=== PATIENT | female | born 1970 | race Caucasian/White ===

== ENCOUNTER 2017-05-24 13:22 | Emergency (ER) | payer OTHER ==
[~2017-05-24] VITALS: Ht 162.6 cm; Wt 74.5 kg
[2017-05-24 13:26] VITALS: Ht 162.6 cm; Wt 74.5 kg
[2017-05-24] MEDS ORDERED: KETOROLAC 30 MG INJ IV STA (14:45)
[2017-05-24] MEDS ORDERED: DIPHENHYDRAMINE 50 MG INJ IV ONE (15:00)
[2017-05-24] MEDS ORDERED: METOCLOPRAMIDE 10 MG INJ IV ONE (15:00)
--- NOTE | 2017-05-24 15:11 | RADRPT ---
PROCEDURE: CT Brain without contrast. CLINICAL INDICATION: headache x 4 days, new onset TECHNIQUE: A CT of the brain was performed on a [employer] 64-slice CT scanner utilizing axial imaging from the skull base through the vertex without IV contrast. Multiplanar reformatted images were made. Images were reviewed on a PACS workstation. The CTDIvol is 44.9 mGy and the DLP is 630 mGycm. One or more of the following dose reduction techniques were used: Automated exposure control. Adjustment of the mA and/or kV according to patient size. Use of iterative reconstruction technique. COMPARISON: None FINDINGS: There is no intracranial hemorrhage, mass effect, or midline shift. No extra-axial fluid collection is seen. The ventricles and sulci are normal in size and configuration. The density of the brain is normal, and the meng white matter differentiation appears well-preserved. The visualized paranasal sinuses and osseous structures are grossly unremarkable. IMPRESSION: 1. No evidence of acute intracranial pathology. 2. The brain is normal in appearance. Physician Reyna Date Time Electronically viewed and signed by Physician Reyna on 05/24/2017 15:10 ML/
[2017-05-24] MEDS ORDERED: KETOROLAC 30 MG INJ IM STA (15:18)
[2017-05-24] MEDS ORDERED: ONDANSETRON (ODT) 4 MG TAB ODT STA (15:18)
[2017-05-24] MEDS ORDERED: IBUP400T22 PO (16:01)
[2017-05-24] MEDS ORDERED: BEN25 PO (16:01)
--- NOTE | 2017-05-24 17:19 | ERD ---
ER Documentation Chief Complaint Date/Time DATE: 05/24/17 TIME: 17:07 Chief Complaint HEADACHE X 4 DAYS HPI This is a 47 year old female presents to ER with headache x 4 days. Patient rates pain 10/10 to posterior head and describes pain as constant and throbbing. Patient states she has had pain on and off for the past 4 days. No nausea or vomiting. Patient took Tylenol about 1 hour prior to arrival with some relief of pain. No blurry vision, loss of vision, curtain coming down over eye(s), floaters or flashes of lights. No neck pain or neck stiffness. No fevers or chills. Describes this as the worst headache she has had and states she does not get headaches often. ROS All systems reviewed and are negative except as per history of present illness. Medications Home Meds Active Scripts Diphenhydramine Hcl* (Benadryl*) 25 Mg Cap, 25 MG PO Q6, #15 CAP Prov:GERALD MCFARLAND NP 05/24/17 Ibuprofen* (Motrin*) 400 Mg Tab, 400 MG PO Q6, #30 TAB Prov:GERALD MCFARLAND NP 05/24/17 Allergies Allergies: Coded Allergies: No Known Allergy (Unverified , 01/24/15) PMhx/Soc History of Surgery: No Anesthesia Reaction: No Hx Neurological Disorder: No Hx Respiratory Disorders: No Hx Cardiac Disorders: No Hx Psychiatric Problems: No Hx Miscellaneous Medical Probl: No Hx Alcohol Use: No Hx Substance Use: No Hx Tobacco Use: No Smoking Status: Former smoker Physical Exam Vitals Vital Signs Date Time Temp Pulse Resp B/P Pulse Ox O2 Delivery O2 Flow Rate FiO2 05/24/17 13:26 98.3 78 18 145/93 98 Physical Exam Const: No acute distress, alert Head: Atraumatic Eyes: Normal Conjunctiva, PERRL, EOMs intact ENT: Normal External Ears, Nose and Mouth. Neck: Full range of motion..~ No meningismus. Resp: Clear to auscultation bilaterally Cardio: Regular rate and rhythm, no murmurs Abd: Soft, non tender, non distended. Normal bowel sounds Skin: No petechiae or rashes Back: No midline or flank tenderness Ext: No cyanosis, or edema Neur: Awake and alert Psych: Normal Mood and Affect Results 24 hrs Current Medications Medications (Trade) Dose Ordered Sig/Yumiko Route PRN Reason Start Time Stop Time Status Last Admin Dose Admin Metoclopramide HCl (Reglan) 10 mg ONCE ONCE IV 05/24/17 15:00 05/24/17 15:20 DC Diphenhydramine HCl (Benadryl) 25 mg ONCE ONCE IV 05/24/17 15:00 05/24/17 15:20 DC Ketorolac Tromethamine (Toradol) 30 mg ONCE STAT IV 05/24/17 14:45 05/24/17 15:20 DC Ketorolac Tromethamine (Toradol) 30 mg ONCE STAT IM 05/24/17 15:18 05/24/17 15:20 DC 05/24/17 15:37 Ondansetron HCl (Zofran Odt) 4 mg ONCE STAT ODT 05/24/17 15:18 05/24/17 15:20 DC 05/24/17 15:35 Procedures/MDM MDM: 47 year old female presents to ER with constant, throbbing headache intermittently for the past 4 days. Patient refusing IV or IV medications. Patient given Toradol 30mg IM and zofran 4mg ODT. Patient's neuro exam is unremarkable. no weakness. No visual changes. No fevers or chills. No diplopia, loss of vision or blurry vision. No photophobia. No trauma to head or fall. No loss of consciousness. No nausea or vomiting. No confusion or altered mental status. Upon reassessment of patient, patient states pain has improved significantly. Patient denies ataxic gait, slurred speech, numbness of the face or body, weakness, clumsiness, or incoordination. Vitals are stable. Low suspicion for CVA, TIA, meningitis, subdural hematoma, intracranial hemorrhage or mass. Differential diagnosis includes but not limited to tension headache, migraine headache, cluster headache, sinus headache, sinusitis, trigeminal neuralgia, herpes zoster and postherpetic neuralgia. Patient is appropriate for outpatient management will be given prescription for Ibuprofen and Benadryl. Instructed patient to follow-up with primary care provider in the next 2-3 days for reassessment. Resources provided. Return to ED for any high fever, chest pain, difficulty breathing, shortness breath, wheezing, vomiting, diarrhea, abdominal pain or any new or worsening symptoms. Patient verbalizes understanding. All questions answered at discharge. Disclaimer: Inadvertent spelling and grammatical errors are likely due to EHR/ dictation software use and do not reflect on the overall quality of patient care. Also, please note that the electronic time recorded on this note does not necessarily reflect the actual time of the patient encounter. Departure Diagnosis: Primary Impression: Headache Headache type: unspecified Headache chronicity pattern: acute headache Intractability: not intractable Qualified Code: R51 - Acute nonintractable headache, unspecified headache type Condition: Stable Patient Instructions: Self-Care for Headaches, Headache, Unspecified Referrals: [facility] YOU HAVE RECEIVED A MEDICAL SCREENING EXAM AND THE RESULTS INDICATE THAT YOU DO NOT HAVE A CONDITION THAT REQUIRES URGENT TREATMENT IN THE EMERGENCY DEPARTMENT. FURTHER EVALUATION AND TREATMENT OF YOUR CONDITION CAN WAIT UNTIL YOU ARE SEEN IN YOUR DOCTORS OFFICE WITHIN THE NEXT 1-2 DAYS. IT IS YOUR RESPONSIBILITY TO MAKE AN APPOINTMENT FOR FOLOW-UP CARE. IF YOU HAVE A PRIMARY DOCTOR --you should call your primary doctor and schedule an appointment IF YOU DO NOT HAVE A PRIMARY DOCTOR YOU CAN CALL OUR PHYSICIAN REFERRAL HOTLINE AT IF YOU CAN NOT AFFORD TO SEE A PHYSICIAN YOU CAN CHOSE FROM THE FOLLOWING [facility] [address] [facility]. [facility] [address] [facility]. [facility] [address] [facility] [facility] [address] [facility]. [facility] [address] [facility]. [facility]. [address] [facility] [facility] YOU HAVE RECEIVED A MEDICAL SCREENING EXAM AND THE RESULTS INDICATE THAT YOU DO NOT HAVE A CONDITION THAT REQUIRES URGENT TREATMENT IN THE EMERGENCY DEPARTMENT. FURTHER EVALUATION AND TREATMENT OF YOUR CONDITION CAN WAIT UNTIL YOU ARE SEEN IN YOUR DOCTORS OFFICE WITHIN THE NEXT 1-2 DAYS. IT IS YOUR RESPONSIBILITY TO MAKE AN APPOINTMENT FOR FOLOW-UP CARE. IF YOU HAVE A PRIMARY DOCTOR --you should call your primary doctor and schedule and appointment IF YOU DO NOT HAVE A PRIMARY DOCTOR YOU CAN CALL OUR PHYSICIAN REFERRAL HOTLINE AT . IF YOU CAN NOT AFFORD TO SEE A PHYSICIAN YOU CAN CHOSE FROM THE FOLLOWING [facility] INSTITUTIONS: [facility] [address] [place] [address] [facility] [address] [place] [address] [facility] [address] [place] [address] Additional Instructions: Call your primary care doctor TOMORROW for an appointment during the next 2-3 days.See the doctor sooner or return here if your condition worsens before your appointment time. Return to ED for any high fever, chest pain, difficulty breathing, shortness breath, wheezing, vomiting, diarrhea, abdominal pain or any new or worsening symptoms. GERALD MCFARLAND NP May 24, 2017 17:18
== END 2017-05-24 18:16 | disposition home or self-care (01) ==
LOC: FTE 13:22
DX: R51 Headache (principal); Z87.891 Personal history of nicotine dependence
CPT/HCPCS: 70450; 96372; J1885; Z7502; Z7610; J1200; J2765